=== PATIENT | female | born 2005 | race African-American/Black ===

== ENCOUNTER 2024-02-23 13:06 | Outpatient (AMB) | payer OTHER, SELFPAY ==
--- NOTE | 2024-02-23 13:19 | MHC.OFFVIS ---
Vital Signs 02/23/24 13:25 Height 5 ft 1 in Weight 199 lb 11.821 oz BMI 37.7 BP 112/70 Blood Pressure Location Rt brachial Position Sitting Pulse 111 H Pulse Source Pulse Oximeter Intake Visit Reasons: PCOS/LVM Intake Note: New patient externally referred by PCP for PCOS. Design Leader Required: No Accompanied by: Self / Same As Patient Allergies No Known Allergies Allergy (Verified 02/23/24 13:26) Medication List - Last Reconciled 02/23/24 by Danilo Miles MD atomoxetine 40 mg PO QAM norethindrone-ethin estradiol 0.5-35 mg-mcg (Nortrel) 1 tab PO DAILY HPI Comments Details: 18 YO Female with PMHx PCOS who is seen in consultation at the request of her PCP for [PCOS/Amenorrhea].Dxed at age 12 . [facility] at [place] ? Menarche was age age 7 . Menses have been irregular since age 10 became irregular . OCP use: yes- menses nl on BCP Metformin use: No Weight gain: 20 lbs over last 2 yrs Hirsutism/hyperandrogenism: under chin , arms , Trying to conceive/clomiphene: No Ovarian U/S: No T2DM or acanthosis: Father - has Type 2 DM Lipids: Yes elevation BP: at times elevated . No sx of Cushings Labs: No labs are available from previous encounters except for normal thyroid function studies PFSH Medical History (Updated 02/23/24 @ 13:25 by Danilo Miles MD) Hyperandrogenism Surgical History (Updated 02/23/24 @ 13:27 by JENNIFER Mclaughlin) No pertinent past surgical history Family History (Updated 02/23/24 @ 13:22 by JENNIFER Mclaughlin) Mother Asthma Father High cholesterol Diabetes High blood pressure Social History (Updated 02/23/24 @ 13:21 by JENNIFER Mclaughlin) Alcohol intake: never Patient Tobacco Use Status: Never used Tobacco Physical Exam Const Other: There is the absence of cushingoid features. There is the presence of acanthosis nigricans. Thyroid gland is normal size weighs about 15 g. There are no thyroid nodules palpated. There is presence of hair growth present Assessment & Plan Assessment & Plan (1) Hyperandrogenism: Code(s): E28.8 - Other ovarian dysfunction Category: Medical Plan: This is a 18-year-old female with a history of hyperandrogenism and previous diagnosis of PCOS. Plan is to check a testosterone, DHEA-S, 17 hydroxy progesterone. We will also check glucose and HbA1c. Made a referral to sales and business development manager here. Lastly, patient talk to her primary care provider about potentially getting a sleep study to rule out sleep apnea. We also talked about the use of weight loss medications in the future including G LP -1 and the use of spironolactone for hirsutism. At the present time, the patient is not interested in using any of these medications but may consider use in the future Orders: Orders DHEA Sulfate Today E28.8 - Other ovarian dysfunction Glucose Random Today E28.8 - Other ovarian dysfunction Testosterone, Free/Total Today E28.8 - Other ovarian dysfunction 17 Hydroxyprogesterone Today E28.8 - Other ovarian dysfunction Cortisol, Free 24Hr Urine Today E28.8 - Other ovarian dysfunction Creatinine, 24 Hr Group Today E28.8 - Other ovarian dysfunction Hemoglobin A1c Today E28.8 - Other ovarian dysfunction Referrals Nutrition/Dietitian Referral E28.8 - Other ovarian dysfunction Coding Level of Care Code New Pt Level 4 (02289) Diagnoses Hyperandrogenism E28.8
[2024-02-23 13:25] VITALS: BP 112/70; PULSE 111; BMI 37.7
== END 2024-02-23 14:19 | disposition home or self-care (01) ==
PROVIDERS: PCP Nurse Practitioner Adult Health; Visit Provider Internal Medicine Endocrinology, Diabetes & Metabolism
DX: E28.8 Other ovarian dysfunction (principal)
CPT/HCPCS: 99204

== ENCOUNTER → 2024-02-23 13:06 | Outpatient (BNVA) | payer OTHER, SELFPAY | LOC: CF 02-24 11:38 | PROVIDERS: PCP Nurse Practitioner Adult Health; Visit Provider Internal Medicine Endocrinology, Diabetes & Metabolism | DX: E28.2 Polycystic ovarian syndrome (principal); E28.8 Other ovarian dysfunction | CPT/HCPCS: 99202 ==

== ENCOUNTER 2024-02-24 11:38 | Outpatient (REF) | payer OTHER, SELFPAY ==
[2024-02-24 12:43] LABS: Glucose Random 100 mg/dL (60-115)
[2024-02-24 13:00] LABS: Estimated Average Glucose 105 mg/dL; Hemoglobin A1c % 5.3 % (<6.0)
[2024-02-26 01:54] LABS: DHEA Sulfate 196 mcg/dL (44-286)
[2024-03-05 16:39] LABS: Testosterone, Free 8.6 pg/mL (0.1-6.4); Testosterone, Total 57 ng/dL (2-45)
== END 2024-02-24 11:39 | disposition home or self-care (01) ==
LOC: HO.LAB 11:38
PROVIDERS: PCP Nurse Practitioner Adult Health; Visit Provider Internal Medicine Endocrinology, Diabetes & Metabolism
DX: E28.8 Other ovarian dysfunction (principal)
CPT/HCPCS: 36415; 82627; 82947; 83036; 83498; 84402; 84403

== ENCOUNTER 2024-02-27 09:30 | Outpatient (REF) | payer OTHER, SELFPAY ==
[2024-02-29 14:58] LABS: Creatinine, 24Hr Urine 2.4 G/Day (1.0-2.0); Total Volume 24 Hour Urine 2100 mL
[2024-03-07 13:33] LABS: Cortisol Free, 24 Hr Urine 118.9 mcg/24 h (4.0-50.0); Creatinine, 24 Hr Urine 2.48 g/24 h (0.50-2.15); Total Volume, 24 Hr Urine 2100 mL
== END 2024-02-27 09:31 | disposition home or self-care (01) ==
LOC: HO.LNP 09:30
PROVIDERS: Visit Provider Internal Medicine Endocrinology, Diabetes & Metabolism
DX: E28.8 Other ovarian dysfunction (principal)
CPT/HCPCS: 82530; 82570

== ENCOUNTER 2024-03-31 11:51 | Outpatient (REF) | payer OTHER, SELFPAY | END 2024-03-31 11:52 | disposition home or self-care (01) | LOC: HO.LAB 11:51 | PROVIDERS: Visit Provider Internal Medicine Endocrinology, Diabetes & Metabolism | DX: Z13.89 Encounter for screening for other disorder (principal) ==

== ENCOUNTER 2024-04-07 11:18 | Outpatient (REF) | payer OTHER, SELFPAY | END 2024-04-07 11:19 | disposition home or self-care (01) | LOC: HO.LNP 11:18 | PROVIDERS: Visit Provider Internal Medicine Endocrinology, Diabetes & Metabolism | DX: E28.8 Other ovarian dysfunction (principal) | CPT/HCPCS: 82530 ==

== ENCOUNTER 2024-04-08 10:20 | Outpatient (REF) | payer OTHER, SELFPAY | END 2024-04-08 10:21 | disposition home or self-care (01) | LOC: HO.LAB 10:20 | PROVIDERS: Visit Provider Internal Medicine Endocrinology, Diabetes & Metabolism | DX: Z13.89 Encounter for screening for other disorder (principal) ==

== ENCOUNTER 2024-05-04 15:40 | Outpatient (AMB) | payer OTHER, SELFPAY ==
--- NOTE | 2024-05-04 15:51 | MHC.OFFVIS ---
Vital Signs 05/04/24 15:54 Height 5 ft 1 in Weight 210 lb 12.191 oz BMI 39.8 BP 134/76 Blood Pressure Location Rt brachial Position Sitting Pulse 120 H Pulse Source Pulse Oximeter Intake Visit Reasons: Hyperandrogenism Intake Note: Patient present today Hyperandrogenism follow up visit. Concrete Pointer Required: No Accompanied by: Self / Same As Patient Allergies No Known Allergies Allergy (Verified 05/04/24 15:56) HPI Comments Details: 18 YO Female with PMHx PCOS who is seen in consultation at the request of her PCP for [PCOS/Amenorrhea].Dxed at age 12 . Saw peds endo at [place] ? Menarche was age age 7 . Menses have been irregular since age 10 became irregular . OCP use: yes- menses nl on BCP Metformin use: No Weight gain: 20 lbs over last 2 yrs Hirsutism/hyperandrogenism: under chin , arms , Trying to conceive/clomiphene: No Ovarian U/S: No T2DM or acanthosis: Father - has Type 2 DM Lipids: Yes elevation BP: at times elevated . No sx of Cushings . Laboratory data shows elevated 24 hour urine free cortisol but with elevated urinary creatinine but normal night salivary cortisol. Menses are nl on BCP [facility] Medical History (Updated 02/23/24 @ 13:25 by Danilo Miles MD) Hyperandrogenism Surgical History No pertinent past surgical history Family History Mother Asthma Father High cholesterol Diabetes High blood pressure Social History Alcohol intake: never Patient Tobacco Use Status: Never used Tobacco Physical Exam Vital Signs: Last Vital Signs Pulse 120 H 05/04/24 15:54 BP 134/76 05/04/24 15:54 BMI result Body Mass Index 39.8 Assessment & Plan Assessment & Plan (1) Hyperandrogenism: Code(s): E28.8 - Other ovarian dysfunction Category: Medical Plan: This is a 18-year-old female with a history of hyperandrogenism and previous diagnosis of PCOS. Recent workup is consistent with polycystic ovarian syndrome Plan is to recheck a salivary cortisol along with ACTH. Will also check TSH, free T4 and anti-peroxidase antibodies . We also talked about the use of weight loss medications in the future including G LP -1 and the use of spironolactone for hirsutism. At the present time, the patient is not interested in using any of these medications but may consider use in the future. Assuming above lab testing is normal, patient will follow up with her primary care provider as well as project manager/team coach and returned back to endocrinology as needed Orders: Orders Saliva Cortisol Today E28.8 - Other ovarian dysfunction Coding Level of Care Code Est Pt Level 3 (00173) Diagnoses Hyperandrogenism E28.8
[2024-05-04 15:54] VITALS: BP 134/76; PULSE 120; BMI 39.8
== END 2024-05-04 16:32 | disposition home or self-care (01) ==
LOC: HO.ENCR 15:41
PROVIDERS: PCP Nurse Practitioner Adult Health; Visit Provider Internal Medicine Endocrinology, Diabetes & Metabolism
DX: E28.8 Other ovarian dysfunction (principal)
CPT/HCPCS: 99213

== ENCOUNTER → 2024-05-04 15:40 | Outpatient (BNVA) | payer OTHER, SELFPAY | PROVIDERS: PCP Nurse Practitioner Adult Health; Visit Provider Internal Medicine Endocrinology, Diabetes & Metabolism | DX: E28.8 Other ovarian dysfunction (principal); E28.2 Polycystic ovarian syndrome | CPT/HCPCS: 99212 ==

== ENCOUNTER 2024-05-05 08:18 | Outpatient (REF) | payer OTHER, SELFPAY ==
[2024-05-05 09:23] LABS: Free T4 (Free Thyroxine) 0.88 ng/dL (0.71-1.85); Thyroid Stimulating Hormone 3.83 uIU/mL (0.32-4.0)
[2024-05-09 09:58] LABS: Thyroid Peroxidase Antibodies <1 IU/mL (<9)
[2024-05-13 05:59] LABS: Adrenocorticotropic Hormone 29 pg/mL (6-50)
== END 2024-05-05 08:19 | disposition home or self-care (01) ==
LOC: HO.LAB 08:18
PROVIDERS: Visit Provider Internal Medicine Endocrinology, Diabetes & Metabolism
DX: E28.8 Other ovarian dysfunction (principal)
CPT/HCPCS: 36415; 82024; 84439; 84443; 86376

== ENCOUNTER 2024-05-06 10:23 | Outpatient (REF) | payer OTHER, SELFPAY ==
[2024-05-14 18:59] LABS: Saliva Cortisol 0.07 mcg/dL
== END 2024-05-06 10:24 | disposition home or self-care (01) ==
LOC: HO.LNP 10:23
PROVIDERS: Visit Provider Internal Medicine Endocrinology, Diabetes & Metabolism
DX: E28.8 Other ovarian dysfunction (principal)
CPT/HCPCS: 82530

== ENCOUNTER 2024-07-10 14:08 | Outpatient (AMB) | payer OTHER, SELFPAY ==
--- NOTE | 2024-07-10 14:44 | A.OFFVIS_ITS ---
VS Expanded 07/10/24 14:45 07/12/24 12:40 Height 5 ft 1 in 5 ft 1 in Weight 213 lb 2.992 oz 213 lb BMI 40.3 40.2 Intake Visit Reasons: Obesity/Confirmed Allergies No Known Allergies Allergy (Verified 05/04/24 15:56) Nutrition Presentation Details: Pt presents for MNT for hyperandrogenism, with obesity. The Pt was referred by Dr. Goddard Pt reports having irregular eating pattern related to school schedule Pt is college participates from meals in dining halls and often has dinner at home 10 am fruit/granola bar/sand, water, snacks foods chips/ skips lunch 5pm dinner : Starch/stir quinn or meat Food frequency fruits: 0-1/d ve -3x/wk dairy: 1-2/d fried foods : 1-2x/wk fish: 0-1/wk Pt reports having med hx of ADHD , on methylphenidrate - 36 mg/d - however may forget to take it as prescribed (30-60 min before the meal) Physical activity: adl etoh/smoking denies BS Monitoring Most Recent Diabetes Results: No Data to Display [facility].Jeor Equation Height: 5 ft 1 in Weight: 213 lb Resting Metabolic Rate: 1674.16 Calculated Activity Level: Sedentary Calories Needed to Maintain Weight: 2008.99 Diagnosis Nutrition problem #1: food nutri know defi As related to (etiology) #1: diagnosis As evidenced by (sign/symptom) #1: knowledge deficit of diet [facility] Medical History (Updated 07/12/24 @ 14:28 by Lisha Singh, RD, LDN) Hyperandrogenism Surgical History No pertinent past surgical history Family History Mother Asthma Father High cholesterol Diabetes High blood pressure Social History Alcohol intake: never Patient Tobacco Use Status: Never used Tobacco Assessment & Plan Assessment & Plan (1) Hyperandrogenism: Comment: obesity BMI at 40.2 (07/10/24) Code(s): E28.8 - Other ovarian dysfunction Category: Medical Plan: Wt: 97 Kg ( 06/2024 ) Est kcal needs as per MSJ: 2000 (40% carb, 30% protein/fat) Est fluid needs as per 25-30 ml/d: 2900 Est prot per day as per 1 g/kg bw: 97 Recommend fiber intake : 8-10 g per day and gradually increase to 25-28 g per day for women and 35-38 g for men or as tolerated Recommend sodium intake per day : less than 2300 mg Educated patient on: ( R = reviewed V = verbalizes understanding N/R = needs review N/A = not applicable * Food sources of carbohydrate, adequate serving sizes and its role in various health conditions: R * Differences between complex carbohydrates a simple carbohydrates, role of fiber in diet: R V N/R * Lean protein sources of foods: R V NR * Differences between types of fats and role in diet (mono on saturated fat fatty acids, saturated fatty acids, trans fats): R * Food sources of sodium in salt and healthy modifications for heart health in kidney health: R V R/V * Vitamins and minerals: R V N/R * Healthy plate method concept: R V N/R * Physical activity: Benefits a precaution: R V N/R * naturally gluten free foods : R Patient Instructions: Work on reducing sugars from beverages and total carb per meal to 45-60 and snack 0-20 g carb See meal ideas whole grains, consisting of less yuliya 60 g carbs) Coding Level of Care Code Nutr Indiv Intake (99504) Diagnoses Hyperandrogenism E28.8 Time Spent (min) 30
[2024-07-10 14:45] VITALS: BMI 40.3
[2024-07-12 12:40] VITALS: BMI 40.2
== END 2024-07-10 15:25 | disposition home or self-care (01) ==
PROVIDERS: PCP Nurse Practitioner Adult Health; Visit Provider Dietitian, Registered
DX: E28.8 Other ovarian dysfunction (principal)

== ENCOUNTER → 2024-07-10 14:08 | Outpatient (BNVA) | payer OTHER, SELFPAY | PROVIDERS: PCP Nurse Practitioner Adult Health; Visit Provider Dietitian, Registered | DX: E28.8 Other ovarian dysfunction (principal) | CPT/HCPCS: 97802 ==

== ENCOUNTER 2025-01-31 14:26 | Outpatient (AMB) | payer OTHER, SELFPAY ==
[2025-01-31 14:46] VITALS: BMI 39.8
--- NOTE | 2025-01-31 14:46 | A.OFFVIS_ITS ---
VS Expanded 01/31/25 14:46 Height 5 ft 1 in Weight 210 lb 12.191 oz BMI 39.8 Intake Visit Reasons: Obesity Allergies No Known Allergies Allergy (Verified 01/31/25 14:41) Nutrition Presentation Details: Pt presents for MNT f/u for obesity with hyperandrogenism Pt reports working on reduction , sometimes feels overwhelmed Has quetions regarding tracking food intake PFSH Medical History (Updated 02/01/25 @ 14:11 by Lisha Singh, RD, LDN) Hyperandrogenism Surgical History No pertinent past surgical history Family History Mother Asthma Father High cholesterol Diabetes High blood pressure Social History Alcohol intake: never Patient Tobacco Use Status: Never used Tobacco Assessment & Plan Assessment & Plan (1) Hyperandrogenism: Comment: obesity BMI at 40.2 (07/10/24), 39.8(02/19) Code(s): E28.8 - Other ovarian dysfunction Category: Medical Plan: Wt: 97 Kg ( 06/2024 ), 96 kg(02/19) Est kcal needs as per MSJ: 2000 (40% carb, 30% protein/fat) Est fluid needs as per 25-30 ml/d: 2900 Est prot per day as per 1 g/kg bw: 97 Recommend fiber intake : 8-10 g per day and gradually increase to 25-28 g per day for women and 35-38 g for men or as tolerated Recommend sodium intake per day : less than 2300 mg Educated patient on: ( R = reviewed V = verbalizes understanding N/R = needs review N/A = not applicable * Food sources of carbohydrate, adequate serving sizes and its role in various health conditions: R * Differences between complex carbohydrates a simple carbohydrates, role of fiber in diet: R * Lean protein sources of foods: R * Differences between types of fats and role in diet (mono on saturated fat fatty acids, saturated fatty acids, trans fats): R * Food sources of sodium in salt and healthy modifications for heart health in kidney health: R V R/V * Vitamins and minerals: R V N/R * Healthy plate method concept: R V N/R * Physical activity: Benefits a precaution: R V N/R * naturally gluten free foods : R Patient Instructions: Work on counting calories, measure food portion sizes for now 1800- 2000 calories /day choose lean protein and fiber rich carbohydrates keep hydrated by having water with meals/snacks Coding Level of Care Code Nutr Indiv Subseq (97983) Diagnoses Hyperandrogenism E28.8 Time Spent (min) 30
--- OUTSIDE RECORDS SUMMARY | 2025-01-31 14:54 | XMS_ITS | Clinical Summary ---
Author Organization [address] Address [address] [place] [phone] Phone Care Team Providers Care Fire Alarm Repairer Name Role Phone Mariusz Peraza MD Primary Care Provider [phone] Allergies No known active allergies Medications Concerta 54 mg 24 hr tablet Take 1 tablet (54 mg total) by mouth 1 (one) time each day. 5 Active norethindrone-e thinyl estradiol (Necon 0.5/35, 28,) 0.5-35 mg-mcg per tabletIndicatio ns: control counseling Take 1 tablet by mouth 1 (one) time each day. 84 tablet 3 5 Active lisdexamfetamin e (Vyvanse) 30 mg capsule TK 1 C PO QAM 9 01/25/20 25 Discontinu ed(Therapy completed) Active Problems Problem Noted Date Diagnosed Date Subclinical hypothyroidism 12/06/2022 Situational stress 05/04/2022 Overview (07/31/2024): 04/03/2022: Behavioral health evaluation with Dr. Tsai [facility]. Sent by Dr. Anaya, Weight Management for possible relation to emotional eating. During their session, reported stress with of transition to becoming a freshman student at [employer]. Overall adjustment good but feels off at times and emotionally numb. Iffy about social relationships. Noted to be on 36 of Vyvanse for ADD. Psychotherapy initiated with request for provider in [place]. Class 1 obesity 01/23/2022 Overview (07/31/2024): Involved with endocrinology weight management program 04/30/2022: Follow-up with pediatric endocrinology continues to see the therapist and dietitian. Looking at lower calorie sweets; focus on healthier choices. They recommended talking to the medication prescriber to increase her Vyvanse to 20 mg in the a.m. and 10 mg in the p.m. to avoid rebound hunger. Plans to start her OCPs as they discussed at previous visits. Plan is for 1 pound: Week weight loss. Follow-up in 4 months. Acne 03/06/2020 ADD (attention deficit disorder) 12/24/2016 Overview (07/31/2024): vyvanse 01/21/2022 Referral to Lloyd Tsai at [facility] done PCOS (polycystic ovarian syndrome) 07/02/2016 Overview (07/31/2024): October 27, 2021-seen at [facility] pediatric endocrine. Possible PCOS. Labs ordered. Follow-up depending upon lab results Encounters Date Type Department Care Team Description 01/24/2025 2:00 PM EDT Office Visit Internal Medicine - [address] [phone] Reshma Martinez NP Adult general medical examination (Primary Dx); Screening for cardiovascular condition; Subclinical hypothyroidism; PCOS (polycystic ovarian syndrome); Attention deficit disorder, unspecified type 11/28/2024 2:45 PM EDT Office Visit Obstetrics and Gynecology [address] [phone] Terrie Aguirre CNM control counseling (Primary Dx); examination or test, negative result; PCOS (polycystic ovarian syndrome); Irregular periods from Last 3 Months Immunizations Name Administration Dates Next Due DTaP (Infanrix) 6wks to less than 7yo ,04/28/2005,06/17/2004,04/22,02/21/2004 [id number] (Pentacel) 2mo to less than 5yo 04/28/2005,06/17/2004,04/22/2004,02/20 HPV 9-valent (Gardisil) 9yo to less than 46yo 11/13/2016,10/16/2015 Hepatitis B Pediatric (Enger ix B; Recombivax HB) to less than 20 yo 09/09/2004,01/17/2004,2003 IPV Inactivated polio (Ipol) 6wks and older 02/24/2008,09/09/2004,04/22/2004,02/20 Influenza trivalent, 0.5mL, preservative free (Fluarix; FluLaval; Fluzone) ages 6mo and older (Afluria) 3 years and older 04/09/2020,07/11/2018,04/26/2007 MMR, measles mumps and rubel la Live (Priorix; M-M-R II) 12mo and older 02/24/2008,2004 Meningococcal B, Unspecified 03/06/2020,10/16/19 16 Meningococcal MCV4P 03/06/2020,10/16/2015 [employer] EMP[employer] SARS-CoV-2 COVID-19, mRNA, LNP-S, preservative free 11/21/2021,11/06/2020,10/16/2020 Pneumococcal Conjugate Vacci ne, 7 Valent 04/28/2005,06/17/2004,04/22/2004,02/20 Tdap Tetanus diptheria acell ular pertussis (Boostrix; Adacel) 7yo and older 10/16/2015 Varicella live (Varivax) 12m o and older 02/24/2008,2004 Surgical History Surgery Date Site/Laterality Comments OTHER SURGICAL HISTORY PROCEDURE: DENIES PREVIOUS SURGERY Medical History Medical History Date Comments Irregular menses DX:Irregular me nses Amenorrhea, secondary 07/02/2016 DX:Amenorr hea, secondary Family History Medical History Relation Name Comments Diabetes Father Hyperlipidemia Father Hypertension Father Asthma Mother Other cancer Paternal Grandfather stomach Allergies Sister 1 ampicillin Asthma Sister 2 Colon cancer Uncle pat. side Relation Name Status Comments Brother Alive Master Davidson 03/28/1996 Father Alive Herrera Davidson 1 07/15/1958 Mother Alive edilberto Novak 06/19/1969 Paternal Grandfather Sister 1 Sister 2 Sister 3 Alive Mallory Davidson 07/20/1994 Uncle Social History Tobacco Use Types Packs/Day Years Used Date Smoking Tobacco: Never Smokeless Tobacco: Never Tobacco Cessation:Counseling Given: Not Answered Alcohol Use Standard Drinks/Week Comments No 0 (1 standard drink = 0.6 oz pur e alcohol) Comments No Sex and Gender Information Value Date Recorded Sex Assigned at Not on file Legal Sex Female 9:53 AM EST Gender Identity Not on file Sexual Orientation Not on file Obstetrics History Para Term AB IAB SAB Ectopic Multiple Livin g Live Births 0 0 0 0 0 0 0 0 0 0 0 Last Filed Vital Signs Vital Sign Reading Time Taken Comments Blood Pressure 128/76 01/24/2025 1:51 PM EDT Pulse 95 01/24/2025 1:51 PM EDT Temperature - - Respiratory Rate - - Oxygen Saturation - - Inhaled Oxygen Concentration - - Weight 95.3 kg (210 lb 3.2 oz) 01/24/2025 1:51 P M EDT Height 158.8 cm (5' 2.5 ) 01/24/2025 1:51 PM EDT Body Mass Index 37.83 01/24/2025 1:51 PM EDT Plan of Treatment Upcoming Encounters Date Type Department Care Team (Late st Contact Info) Description 03/05/2025 3:45 PM EDT Office Visit Obstetrics and Gynecology [address] [phone] Terrie Aguirre, [facility] [address] [place] [address] Health Maintenance Due Date Last Done Comments Meningococcal B Vaccine (1 of 2 - Standard) 04/03/2020 03/06/2020, 10/16/2015 COVID-19 Vaccine ( season) 2024 11/21/2021, 11/06/2020, 10/16/2020 Cervical Cancer Screening: Pap Smear 12/16/2024 Influenza Vaccine (#1) 2025 , 07/11/2018, 04/26/2007 DTaP,Tdap,and Td Vaccines (7 - Td or Tdap) 10/15/2025 10/16/2015, 02/24/2008, 04/28/2005, Additional history exists Annual Well Child Visit (3-21 years old) 01/24/2026 01/24/2025, 12/08/2023, 10/12/2022, Additional history exists Social Influencers of Health Screening 01/24/2026 01/24/2025 Depression Screening 01/26/2026 12/08/2023 Postpon ed from 06/28/2024 (Not clinically appropriate to address at this time) Cholesterol Screening (Lipid Panel) 01/24/2030 01/24/2025, 10/12/2022 Hepatitis B Vaccines Completed 09/09/2004, 01/17/2004, 2003 HIB Vaccines Completed 04/28/2005, 06/2004, 06/17/2004, Additional history exists Pneumococcal Vaccine: Pediatrics (0 to 5 Years) and At-Risk Patients (6 to 49 Years) Completed 04/28/2005, 06/17/2004, 04/22/2004, Additional history exists IPV Vaccines Completed 02/24/2008, 06/2004, 09/09/2004, Additional history exists MMR Vaccines Completed 02/24/2008, 2004 Varicella Vaccines Completed 02/24/2008, 2004 HPV Vaccines Completed 11/13/2016, 10/16/2015 Meningococcal ACWY Vaccine Completed 03/06/2020, HIV Screening Completed 07/23/2022 Hepatitis C Screening Completed 07/23/2022 Gonorrhea/Chlamydia Screening Discontinued 12/20/2023 Hepatitis A Vaccines Aged Out No long er eligible based on patient's age to complete this topic RSV Immunization Patients Under 20 months Aged Out No longer eligible based on patient's age to complete this topic Procedures Procedure Name Priority Date/Time Associated Diagnosis Comments LIPID PANEL WITH REFLEX TO DIRECT LDL Routine 01/24/2025 2:36 PM EDT Screening for cardiovascular condition BASIC METABOLIC PANEL Routine 01/24/2025 2:36 PM EDT Screening for cardiovascular condition THYROID STIMULATING HORMONE WITH REFLEX TO FREE T4 AND FREE T3 Routine 01/24/2025 2:36 PM EDT Subclinical hypothyroidism POC , URINE DIAGNOSTIC Routine 11/28/2024 3:36 PM EDT control counseling HM GONORRHEA/CHLAMYDIA SCRREENING Routine 12/20/2023 DEPRESSION SCREENING Routine 12/08/2023 HEPATITIS C SCREENING Routine 07/23/2022 HIV SCREENING Routine 07/23/2022 from Last 3 Months or Most Recently Relevant to Health Maintenance Results * Thyroid stimulating hormone with reflex to free t4 and free t3 (01/24/2025 2:36 PM EDT) TSH 2.70 0.40 - 4.00 mcIU/mL LAB CHEMISTRY METHOD 01/24/2025 7:38 PM EDT [facility] Blood Venous blood specimen / Unknown Venipuncture / Unknown 01/24/2025 2:36 PM EDT 01/24/2025 2:36 PM EDT us Reshma Martinez NP LAB BLOOD ORDERABLES Final Resul t [facility] [address] [place] [address], [place] [phone] * (ABNORMAL) Lipid panel with reflex to direct LDL (01/24/2025 2:36 PM EDT) Cholesterol 171 0 - 200 mg/dL LAB CHEMISTRY METHOD 01/24/2025 6:38 PM EDT [facility] Triglycerides 126 0 - 150 mg/dL LAB CHEMISTRY METHOD 01/24/2025 6:38 PM EDT [facility] HDL 40 >=40 mg/dL LAB CHEMISTRY METHOD 01/24/2025 6:38 PM EDT [facility] LDL Calculated 106(H) 0 - 100 mg/dL LAB CHEMISTRY METHOD 01/24/2025 6:38 PM EDT [facility] VLDL Cholesterol Cam 25.2 mg/dL LAB CHEMISTRY METHOD 01/24/2025 6:38 PM EDT [facility] Non HDL Chol. (LDL+VLDL) 131 <145 mg/dL LAB CHEMISTRY METHOD 01/24/2025 6:38 PM EDT [facility] Chol/HDL Ratio 4.3 0.0 - 4.4 LAB CHEMISTRY METHOD 01/24/2025 6:38 PM EDT [facility] Blood Venous blood specimen / Unknown Venipuncture / Unknown 01/24/2025 2:36 PM EDT 01/24/2025 2:36 PM EDT us Reshma Martinez NP LAB BLOOD ORDERABLES Final Resul t [facility] [address] [place] [address], * Basic metabolic panel (01/24/2025 2:36 PM EDT) Sodium 136 133 - 145 mmol/L LAB CHEMISTRY METHOD 01/24/2025 6:32 PM [facility] Potassium 4.2 3.5 - 5.5 mmol/L LAB CHEMISTRY METHOD 01/24/2025 6:32 PM [facility] Chloride 105 96 - 110 mmol/L LAB CHEMISTRY METHOD 01/24/2025 6:32 PM [facility] CO2 27 21 - 32 mmol/L LAB CHEMISTRY METHOD 01/24/2025 6:32 PM T [facility] Anion Gap 4 3 - 11 LAB CHEMISTRY METHOD 01/24/2025 6:32 PM [facility] Glucose 92 70 - 100 mg/dL LAB CHEMISTRY METHOD 01/24/2025 6:32 PM T [facility] BUN 10 5 - 25 mg/dL LAB CHEMISTRY METHOD 01/24/2025 6:32 PM EDT [facility] Creatinine 0.88 0.50 - 1.10 mg/dL LAB CHEMISTRY METHOD 01/24/2025 6:32 PM EDT [facility] eGFR 96 >=60 mL/min/1. 73m2 LAB CHEMISTRY METHOD 01/24/2025 6:32 PM EDT [facility] Comment:Calculation based on the Chronic Kidney Disease Epidemiology Collaboration (CKD-EPI) equation refit without adjustment for race. BUN/Creatinine Ratio 11.4 LAB CHEMISTRY METHOD 01/24/2025 6:32 PM EDT [facility] Calcium 9.1 8.5 - 10.5 mg/dL LAB CHEMISTRY METHOD 01/24/2025 6:32 PM EDT [facility] Blood Venous blood specimen / Unknown Venipuncture / Unknown 01/24/2025 2:36 PM EDT 01/24/2025 2:36 PM EDT Reshma Martinez [employer] LAB BLOOD ORDERABLES Final Resul t [facility] [address] [place] [address], [place] [phone] * POC , urine manually resulted (11/28/2024 3:36 PM EDT) HCG, Ur POC Negative Negative POC hCG Int QC Pass? Yes Yes Urine Urine specimen obtained by clean catch procedure / Unknown 11/28/2024 3:36 PM EDT Terrie Aguirre CNM POINT OF CARE TEST ENTER/EDIT ORDERABLES Final Result * Gonorrhea/Chlamydia Screening (12/20/2023) Gonorrhea/Chla mydia Screening abstracted Historical Provider HEALTH MAINTENANCE Final Result * Depression Screening (12/08/2023) Depression Screening abstracted Historical Provider HEALTH MAINTENANCE Final Result * HIV Screening (07/23/2022) Pathologist [facility] HIV Screening abstracted Historical Provider HEALTH MAINTENANCE Final Result * Hepatitis C Screening (07/23/2022) Hepatitis C Screening abstracted Historical Provider HEALTH MAINTENANCE Final Result from Last 3 Months or Most Recently Relevant to Health Maintenance [place] [place] [address] PLAN Care Teams Fire Alarm Repairer Relationship Specialty Start Date End Date Mariusz Peraza MD [address] [place] [address] PCP - General 12/22/22
--- OUTSIDE RECORDS SUMMARY | 2025-01-31 14:54 | XMS_ITS ---
Author Name [facility] Organization Unknown Care Team Organization Name Specialty Phone Email Start Date End Da te [facility] Primary Care 11/02/2022 02/14/2024 [facility] Dorothea Najera MD Primary Care 09/29/2022 02/14/2024 [facility] Idania Moreno Primary Care 05/05/2022 02/14/2024
== END 2025-01-31 15:15 | disposition home or self-care (01) ==
LOC: HO.ENCR 14:27
PROVIDERS: PCP Nurse Practitioner Adult Health; Visit Provider Dietitian, Registered
DX: E28.8 Other ovarian dysfunction (principal)

== ENCOUNTER 2025-01-31 14:26 | Outpatient (AMB) | payer OTHER, SELFPAY ==
--- NOTE | 2025-01-31 14:39 | A.OFFVIS_ITS ---
Vital Signs 01/31/25 14:44 Height 5 ft 1 in Weight 210 lb 12.191 oz BMI 39.8 BP 112/82 Blood Pressure Location Rt brachial Position Sitting Pulse 99 Pulse Source Pulse Oximeter Pulse Oximetry (%) 98 Oxygen Delivery Method Room Air Intake Visit Reasons: Hyperandrogenism Intake Note: Patient present today Hyperandrogenism follow up visit. Telegraph Mechanic Required: No Accompanied by: Self / Same As Patient Allergies No Known Allergies Allergy (Verified 01/31/25 14:41) Medication List - Last Reconciled 01/31/25 by Danilo Miles MD atomoxetine 40 mg PO QAM methylphenidate HCl ER (Concerta) 36 mg PO DAILY norethindrone-ethin estradiol 0.5-35 mg-mcg (Nortrel) 1 tab PO DAILY HPI Comments Details: 19 YO Female with PMHx PCOS who is seen in consultation at the request of her PCP for [PCOS/Amenorrhea].Dxed at age 12 . Saw peds yong at [place] ? Menarche was age age 7 . Menses have been irregular since age 10 became irregular . OCP use: yes- menses nl on BCP Metformin use: No Weight gain: 20 lbs over last 2 yrs Hirsutism/hyperandrogenism: under chin , arms , Trying to conceive/clomiphene: No Ovarian U/S: No T2DM or acanthosis: Father - has Type 2 DM Lipids: Yes elevation BP: at times elevated . No sx of Cushings . Laboratory data shows elevated 24 hour urine free cortisol but with elevated urinary creatinine but normal midnight salivary cortisol. Menses are nl on BCP [facility] Medical History (Updated 07/12/24 @ 14:[address], LDN) Hyperandrogenism Surgical History No pertinent past surgical history Family History Mother Asthma Father High cholesterol Diabetes High blood pressure Social History Alcohol intake: never Patient Tobacco Use Status: Never used Tobacco Physical Exam Vital Signs: Last Vital Signs Pulse 99 01/31/25 14:44 BP 112/82 01/31/25 14:44 Pulse Ox 98 01/31/25 14:44 Oxygen Delivery Method Room Air 01/31/25 14:44 BMI result Body Mass Index 39.8 Assessment & Plan Assessment & Plan (1) Hyperandrogenism: Comment: obesity BMI at 40.2 (07/10/24) Code(s): E28.8 - Other ovarian dysfunction Category: Medical Plan: This is a 18-year-old female with a history of hyperandrogenism and previous diagnosis of PCOS. Recent workup is consistent with polycystic ovarian syndrome Plan is to start Zepbound 2.5 mg Q weekly. Patient was warned about the side effects of Zepbound including but not limited to nausea, vomiting rare risk of pancreatitis. She is also told to use 2 forms of contraception when using the Zepbound. She will continue with the estrogen containing control pill. We will see her back in 6 months' time. We will also continue with the electrical timing device calibrator/dietitian for follow-ups Medications: New Zepbound (tirzepatide (weight loss)) for 4 weeks 2.5 mg (0.5 mL) subcut QWEEK 2 mL 5RF NS Coding Level of Care Code Est Pt Level 3 (53811) Diagnoses Hyperandrogenism E28.8
[2025-01-31 14:44] VITALS: BP 112/82; PULSE 99; O2SAT 98; BMI 39.8
== END 2025-01-31 16:20 | disposition home or self-care (01) ==
PROVIDERS: PCP Nurse Practitioner; Visit Provider Internal Medicine Endocrinology, Diabetes & Metabolism
DX: E28.8 Other ovarian dysfunction (principal)
CPT/HCPCS: 99213

== ENCOUNTER → 2025-01-31 14:26 | Outpatient (BNVA) | payer OTHER, SELFPAY | PROVIDERS: PCP Nurse Practitioner Adult Health; Visit Provider Dietitian, Registered | DX: E66.9 Obesity, unspecified (principal); E28.1 Androgen excess; E28.2 Polycystic ovarian syndrome; Z68.39 Body mass index [BMI] 39.0-39.9, adult | CPT/HCPCS: 97803; 99212 ==

== ENCOUNTER 2025-02-19 12:47 | Outpatient (AMB) | payer OTHER, SELFPAY ==
--- NOTE | 2025-02-19 12:50 | MHC.OFFVIS ---
Vital Signs 02/19/25 12:51 Height 5 ft 1 in Weight 215 lb 6.266 oz BMI 40.7 BP 124/72 Blood Pressure Location Rt brachial Position Sitting Pulse 111 H Pulse Source Pulse Oximeter Pulse Oximetry (%) 98 Oxygen Delivery Method Room Air Intake Visit Reasons: Discuss zepbound coverage Intake Note: Patient present today to discuss Zepbound and other treatment options. Agricultural Mechanic Required: No Accompanied by: Self / Same As Patient Allergies No Known Allergies Allergy (Verified 02/19/25 12:57) Medication List - Last Reconciled 02/19/25 by Danilo Miles MD atomoxetine 40 mg PO QAM methylphenidate HCl ER (Concerta) 36 mg PO DAILY norethindrone-ethin estradiol 0.5-35 mg-mcg (Nortrel) 1 tab PO DAILY Zepbound (tirzepatide (weight loss)) 2.5 mg (0.5 mL) subcut QWEEK NS HPI Comments Details: 19 YO Female with PMHx PCOS who is seen in consultation at the request of her PCP for [PCOS/Amenorrhea].Dxed at age 12 . [place] ? Menarche was age age 7 . Menses have been irregular since age 10 became irregular . OCP use: yes- menses nl on BCP Metformin use: No Weight gain: 20 lbs over last 2 yrs Hirsutism/hyperandrogenism: under chin , arms , Trying to conceive/clomiphene: No Ovarian U/S: No T2DM or acanthosis: Father - has Type 2 DM Lipids: Yes elevation BP: at times elevated . No sx of [place] . Laboratory data shows elevated 24 hour urine free cortisol but with elevated urinary creatinine but normal midnight salivary cortisol. Menses are nl on BCP . Zepbound was denied by insurance plan requesting step through with phentermine [facility] Medical History (Updated 02/13/25 @ 09:50 by Danilo Miles MD) Hyperandrogenism Surgical History No pertinent past surgical history Family History Mother Asthma Father High cholesterol Diabetes High blood pressure Social History Alcohol intake: never Patient Tobacco Use Status: Never used Tobacco Physical Exam Vital Signs: Last Vital Signs Pulse 111 H 02/19/25 12:51 BP 124/72 02/19/25 12:51 BMI result Body Mass Index 40.7 Assessment & Plan Assessment & Plan (1) Hyperandrogenism: Comment: obesity BMI at 40.2 (07/10/24), 39.8(02/19) Code(s): E28.8 - Other ovarian dysfunction Category: Medical Plan: This is a 18-year-old female with a history of hyperandrogenism and previous diagnosis of PCOS. Recent workup is consistent with polycystic ovarian syndrome. And Zepbound was denied by the insurance plan Plan is to continue to push diet and exercise. Continue present med for polycystic ovarian syndrome. Unfortunately insurance has provided a barrier to prescribing a G LP 1 the patient will think about this in the future and will schedule follow up if she is willing to pursue [place] pay options etcetera Coding Level of Care Code Est Pt Level 3 (08385) Diagnoses Hyperandrogenism E28.8
[2025-02-19 12:51] VITALS: BP 124/72; PULSE 111; O2SAT 98; BMI 40.7
--- OUTSIDE RECORDS SUMMARY | 2025-02-19 13:54 | XMS_ITS | Clinical Summary ---
Author Organization [address] Address [address] [place] [phone] Phone Care Team Providers Care Auto Transport Driver Name Role Phone Mariusz Peraza MD Primary Care Provider [phone] Allergies No known active allergies Medications Concerta [...] 04/03/2022: Behavioral health evaluation with Dr. Tsai [facility] [facility]. Sent by Dr. Anaya, Weight Management for possible relation to emotional eating. 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 Overall adjustment good but feels off at times and emotionally numb. Iffy about social relationships. Noted to be on 36 of Vyvanse for ADD. Psychotherapy initiated with request for provider in [employer]. Class 1 obesity 01/23/2022 Overview (07/31/2024): Involved [...] vyvanse 01/21/2022 Referral to Lloyd Tsai at [place] [facility] done PCOS (polycystic ovarian syndrome) 07/02/2016 Overview (07/31/2024): October 27, 2021-seen at [facility] pediatric endocrine. Possible PCOS. Labs ordered. Follow-up depending upon lab results Encounters Date Type Department Care Team Description 01/24/2025 2:00 PM EDT Office Visit Internal Medicine - [address] [phone] Reshma Martinez NP Adult general medical examination (Primary Dx); Screening for cardiovascular condition; Subclinical hypothyroidism; PCOS (polycystic ovarian syndrome); Attention deficit disorder, unspecified type 11/28/2024 2:45 PM EDT Office Visit Obstetrics and Gynecology [address] [phone] Terrie Aguirre CNM control counseling (Primary Dx); examination or test, negative result; PCOS (polycystic ovarian syndrome); Irregular periods from Last 3 Months Immunizations Name Administration Dates Next Due DTaP (Infanrix) 6wks to less than 7yo ,04/28/2005,06/17/2004,04/22,02/21/2004 [id number] (Pentacel) 2mo to less than 5yo 04/28/2005,06/17/2004,04/22/2004,02/20 [...] B, Unspecified 03/06/2020,10/16/19 16 Meningococcal MCV4P 03/06/2020,10/16/2015 [place]oku SARS-CoV-2 COVID-19, mRNA, LNP-S, preservative free 11/21/2021,11/06/2020,10/16/2020 [...] PM EDT Office Visit Obstetrics and Gynecology [address] [phone] Terrie Aguirre, [facility] [address] [place] [address] Health Maintenance Due Date Last Done Comments [...] control counseling HM GONORRHEA/CHLAMYDIA SCRREENING Routine 12/20/2023 HM DEPRESSION SCREENING Routine 12/08/2023 HM HEPATITIS C SCREENING Routine 07/23/2022 HM HIV SCREENING Routine 07/23/2022 from Last 3 Months or Most Recently Relevant to Health Maintenance Results * Thyroid stimulating hormone with reflex to free t4 and free t3 (01/24/2025 2:36 PM EDT) TSH 2.70 0.40 - 4.00 mcIU/mL LAB CHEMISTRY METHOD 01/24/2025 7:[address] [facility] Blood Venous blood specimen / Unknown Venipuncture / Unknown 01/24/2025 2:36 PM EDT 01/24/2025 2:36 PM EDT us Reshma Martinez NP LAB BLOOD ORDERABLES Final Resul t [facility] [address] [place] [address], [place] [phone] * (ABNORMAL) Lipid panel with reflex to direct LDL (01/24/2025 2:36 PM EDT) Cholesterol 171 0 - 200 mg/dL LAB CHEMISTRY METHOD 01/24/2025 6:[address] [facility] Triglycerides 126 0 - 150 mg/dL LAB CHEMISTRY METHOD 01/24/2025 6:[address] [facility] HDL 40 >=40 mg/dL LAB CHEMISTRY METHOD 01/24/2025 6:[address] [facility] LDL Calculated 106(H) 0 - 100 mg/dL LAB CHEMISTRY METHOD 01/24/2025 6:[address] [facility] VLDL Cholesterol Cam 25.2 mg/dL LAB CHEMISTRY METHOD 01/24/2025 6:[address] [facility] Non HDL Chol. (LDL+VLDL) 131 <145 mg/dL LAB CHEMISTRY METHOD 01/24/2025 6:[address] [facility] Chol/HDL Ratio 4.3 0.0 - 4.4 LAB CHEMISTRY METHOD 01/24/2025 6:[address] [facility] Blood Venous blood specimen / Unknown Venipuncture / Unknown 01/24/2025 2:36 PM EDT 01/24/2025 2:36 PM EDT us Reshma Martinez NP LAB BLOOD ORDERABLES Final Resul t [facility] [address] [place] [address], * Basic metabolic panel (01/24/2025 2:36 PM EDT) Sodium 136 133 - 145 mmol/L LAB CHEMISTRY METHOD 01/24/2025 6:32 PM [facility] Potassium 4.2 3.5 - 5.5 mmol/L LAB CHEMISTRY METHOD 01/24/2025 6:32 PM [facility] Chloride 105 96 - 110 mmol/L LAB CHEMISTRY METHOD 01/24/2025 6:32 PM [facility] CO2 27 21 - 32 mmol/L LAB CHEMISTRY METHOD 01/24/2025 6:[address] [facility] Anion Gap 4 3 - 11 LAB CHEMISTRY METHOD 01/24/2025 6:32 PM [facility] Glucose 92 70 - 100 mg/dL LAB CHEMISTRY METHOD 01/24/2025 6:32 PM [facility] BUN 10 5 - 25 mg/dL LAB CHEMISTRY METHOD 01/24/2025 6:[address] [facility] Creatinine 0.88 0.50 - 1.10 mg/dL LAB CHEMISTRY METHOD 01/24/2025 6:[address] [facility] eGFR 96 >=60 mL/min/1. 73m2 LAB CHEMISTRY METHOD 01/24/2025 6:[address] [facility] Comment:Calculation based on the Chronic Kidney Disease Epidemiology Collaboration (CKD-EPI) equation refit without adjustment for race. BUN/Creatinine Ratio 11.4 LAB CHEMISTRY METHOD 01/24/2025 6:[address] [facility] Calcium 9.1 8.5 - 10.5 mg/dL LAB CHEMISTRY METHOD 01/24/2025 6:[address] [facility] Blood Venous blood specimen / Unknown Venipuncture / Unknown 01/24/2025 2:36 PM EDT 01/24/2025 2:36 PM EDT Reshma Martinez [employer] LAB BLOOD ORDERABLES Final Resul t [facility] [address] [place] [address], * POC , urine manually resulted (11/28/2024 [...] MAINTENANCE Final Result * HIV Screening (07/23/2022) HIV Screening abstracted Historical Provider HEALTH MAINTENANCE Final Result * Hepatitis C Screening (07/23/2022) Hepatitis C Screening abstracted Historical Provider HEALTH MAINTENANCE Final Result from Last 3 Months or Most Recently Relevant to Health Maintenance Insurance PLAN Care Teams Auto Transport Driver Relationship Specialty Start Date End Date Mariusz Peraza MD [address] [place] [id number] PCP - General 12/22/22
== END 2025-02-19 15:01 | disposition home or self-care (01) ==
LOC: HO.ENCR 12:47
PROVIDERS: PCP Nurse Practitioner; Visit Provider Internal Medicine Endocrinology, Diabetes & Metabolism
DX: E28.8 Other ovarian dysfunction (principal)
CPT/HCPCS: 99213

== ENCOUNTER → 2025-02-19 12:47 | Outpatient (BNVA) | payer OTHER, SELFPAY | PROVIDERS: PCP Nurse Practitioner; Visit Provider Internal Medicine Endocrinology, Diabetes & Metabolism | DX: E28.1 Androgen excess (principal); E28.8 Other ovarian dysfunction | CPT/HCPCS: 99212 ==